=== PATIENT | male | born 1970 | race Caucasian/White ===

== ENCOUNTER 2019-02-23 02:12 | Emergency (ER) | payer BC ==
[~2019-02-23] VITALS: Ht 182.9 cm; Wt 107.0 kg
[2019-02-23 02:20] VITALS: BP 164/114
[2019-02-23] MEDS ORDERED: CELLULOSE,OXIDIZED 1 PKT EACH MC ONE (02:30)
[2019-02-23] MEDS ORDERED: GELATIN SPONGE,ABSORBABLE 1 SPONGE SPONGE TP ONE (02:39)
[2019-02-23] MEDS ORDERED: TDAP [DIPH/PERTUSSIS/TET] 0.5 ML VIAL IM ONE ×2 (02:49→03:00)
--- NOTE | 2019-02-23 02:52 | NUR ---
pt refused to have the tdap vaccination
== END 2019-02-23 03:14 | disposition home or self-care (01) ==
LOC: ER 02:19
DX: S61.311A Laceration without foreign body of left index finger with damage to nail, initial encounter (principal); F10.10 Alcohol abuse, uncomplicated; Y90.9 Presence of alcohol in blood, level not specified; W26.0XXA Contact with knife, initial encounter; Y93.89 Activity, other specified; Y92.89 Other specified places as the place of occurrence of the external cause; Y99.8 Other external cause status
CPT/HCPCS: 90715; Z7502